=== PATIENT | female | born 1965 | race Caucasian/White ===

== ENCOUNTER 2016-04-07 15:52 | Emergency (ER) | payer MEDICARE ==
[2016-04-07 16:09] VITALS: BMI 28.3
[2016-04-07 16:10] VITALS: TEMP 97.4
[2016-04-07 16:34] LABS: AUTOMATED BASOPHIL 0.6 % (0-2); AUTOMATED LYMPH 35.7 % (17-44); AUTOMATED MONOCYTE 8.8 % (3-10); AUTOMATED NEUTROPHIL 54.9 % (45-76)
[2016-04-07 16:48] LABS: BLOOD UREA NITROGEN 11 MG/DL (7-17); CALCIUM 10.1 MG/DL (8.4-10.2); CALCULATED OSMOLALITY 278 MOs/Kg (270-290); CHLORIDE 111 mEq/L (98-107); GLUCOSE 97 MG/DL (70-99); SODIUM LEVEL 145 mEq/L (137-146); TOTAL PROTEIN 7.8 G/DL (6.3-8.2)
[2016-04-07 16:55] LABS: LEUKOCYTES/URINE NEG (NEGATIVE); NITRITE/URINE NEG (NEGATIVE); RBC/URINE 0-2 (0-5); URINE OCCULT BLOOD NEG (NEG/TRACE); WBC/URINE 0-2 (0-5)
--- NOTE | 2016-04-07 20:58 | EDPRACDOC ---
- General Information Chief Complaint: Abdominal Pain Stated Complaint: ABD PAIN Time Seen by Provider: 04/07/16 20:53 Information Source: Patient Mode Of Arrival: Ambulance Home Medications: Home Medications Gabapentin [Neurontin] 600 mg PO TID 02/27/12 Sertraline HCl [Zoloft] 150 mg PO QAM 11/16/13 Albuterol Sulfate [Proair Hfa] 2 puff INH Q4H PRN 06/05/14 Tiotropium [place] [Spiriva] 1 puff INH DAILY 06/05/14 Cholecalciferol [Vitamin D3 (cholecalciferol)] 1,000 units PO DAILY 06/21/14 Canagliflozin [Invokana] 100 mg PO DAILY 06/11/15 Esomeprazole Mag Trihydrate [Nexium] 40 mg PO DAILY PRN 06/11/15 Insulin Glargine [Lantus Pen] 50 units SQ QHS 06/11/15 Linaclotide [Linzess] 145 mcg PO QHS 06/11/15 Olanzapine [Zyprexa] 20 mg PO DAILY 06/11/15 Ledipasvir/Sofosbuvir [Harvoni 90-400 mg Tablet] 1 tab PO DAILY 09/06/15 Calcitriol [Rocaltrol] 0.5 mcg PO BID 02/24/16 Diltiazem HCl [Diltiazem 24Hr ER] 360 mg PO DAILY 02/24/16 Levothyroxine [Synthroid, Levoxyl] 150 mcg PO DAILY 02/24/16 Lisinopril [Prinivil] 10 mg PO DAILY 02/24/16 Lorazepam [Ativan] 0.5 mg PO TID 02/24/16 MetFORMIN (Immediate Release) [GLUCOPHAGE Immed Release] 1,000 mg PO .BID SEE COMMENTS 02/24/16 Oxycodone HCl [Roxicodone] 5 mg PO QID 02/24/16 Rosuvastatin [Crestor] 10 mg PO HS 02/24/16 Oxycodone Immediate Release [Oxy-Ir] 5 mg PO Q4H PRN #40 tab 02/26/16 Promethazine HCl [Phenergan] 12.5 mg PO Q6 PRN #30 tablet 02/26/16 Allergies/Adverse Reactions: Allergies Allergy/AdvReac Type Severity Reaction Status Date / Time ibuprofen [From Motrin] Allergy Severe Bleeding Verified 04/07/16 16:09 codeine [Codeine] Allergy HIVES Verified 04/07/16 16:09 - History of Present Illness Onset: TODAY Pain Location: Reports: RUQ Pain Context: Reports: Spontaneous Pain Severity: Mild Pain Quality: Reports: Aching Pain Radiation: Reports: No Radiation Last Menstrual Period: 04/01/16 Adult Abdominal History: Reports: Similar Pain (dx) (MULTIPLE). Denies: Urolithiasis, Bowel Obstruction Female Abdominal History: Denies: UTI, Ectopic, PID, Urolithiasis Female Associated Signs & Symptoms: Reports: Nausea. Denies: Vomiting, Anorexia , Fever Oral Intake: Normal Urinary Output: Normal Other History: [facility] ED VISITS FOR ABD PAIN. 5 CT ABDOMEN IN 5 YEARS. - Treatment Prior to ED Arrival Reported Medications/Treatment [facility] Treatment BLS IV No ED Past Medical History - History Reviewed Yes Nurses notes reviewed and agree except as marked - Patient Medical History Neurological History: Reports: Seizures (3 DAYS AGO) Cardiac History: Reports: Hypertension, Hypercholesterolemia. Denies: Atrial Fibrillation Respiratory History: Reports: COPD, Pneumonia GI/ History: Reports: Renal Disease (gfr 59), Gastroesophageal Reflux. Denies : Urinary Tract Infection Psychological History: Reports: Schizophrenia, Substance Use Disorder (pain medication-opiods). Denies: Depression Systemic History: Reports: Anemia, Diabetes, Hypothyroidism, HIV Surgical History: Reports: Appendectomy, Cholecystectomy, Tonsillectomy/ Adnoidectomy, Other (Tubal ligation) - Family Medical History Reports: Hypertension (Mother), Diabetes (Mother), Stroke (brother, grandfather) , Cardiac Disorders (brother) - Social Medical History Smoking Status: Heavy tobacco smoker (5 or more cigarettes/day or daily pipe/ cigar) Social History: Reports: Benzodiazipine Use, Cocaine Use, Substance Use Disorder (pain medication-opiods) Lives In: Home EDM Review of Systems - Review of Systems ROS Negative Except as Marked: Yes All systems reviewed and were negative except as marked - Physical Exam Constitutional: No apparent distress, Alert (Awake), Other (APPEARS CHEMICALLY SEDATED) Oriented to: Time, Person, Place Last recorded Vital Signs: Last Vital Signs Temp 97.4 F L 04/07/16 16:09 Pulse 98 04/07/16 16:09 Resp 20 04/07/16 16:09 BP 117/60 04/07/16 16:09 Pulse Ox 100 04/07/16 16:09 Oxygen Pulse Oxygen Saturation 100 O2 Device Oxygen Flow Rate Fraction of Inspired Oxygen ( FIO2) - HEENT Head: Normal ( normocephalic) Eye Exam: Normal (PERRL, EOMI, Sclera white). negative: Pale Conjunctiva, Scleral Icterus Oropharynx: Normal (Pharynx:Moist without exudate,Gums-no swelling). negative: Membranes Dry, Tonsillar Hypertrophy Nose: No Symptoms Reported (septum midline) Neck: Normal (FROM, trachea at midline) - Respiratory/Cardiovascular Respiratory: Normal - CTA (BBS clear to auscultation without adventitious sounds ) Cardiovascular: Normal (RRR without murmur, gallop or rub) - GI Auscultation: Normal (NABS) Palpation: Normal (Soft,No rebound or guarding, non distended) Tenderness: Mild, RUQ Ortiz's Sign: Negative - Musculoskeletal Back: Normal (Non-Tender) Extremities: Normal (Normal tone, Pulses 2+ No cyanosis or edema, FROM) - Integumentary Skin: Normal, Warm, Dry Lymphatics: Normal (no adenopathy) - Neurologic Memory Impaired: Normal Motor Function: Normal (Normal tone, Pulses 2+ No cyanosis or edema, FROM) Cranial Nerve: Normal (CN II-X11 intact sensation, strength 5/5) Cerebellar: Normal Mood Description: Normal Thought: Coherent Perception: Normal - Results 04/07/16 16:20 04/07/16 16:20 WBC 3.5 xk/uL (3.8-10.8) L 04/07/16 16:20 RBC 4.51 xM/uL (4.20-5.40) 04/07/16 16:20 Hgb 12.7 g/dL (12.0-16.0) 04/07/16 16:20 Hct 37.8 % (36-47) 04/07/16 16:20 MCV 84 fL (81-99) 04/07/16 16:20 MCH 28.3 pg (27-32) 04/07/16 16:20 MCHC 33.7 g/dl (33-36) 04/07/16 16:20 RDW 17.4 % (11.5-14.5) H 04/07/16 16:20 Plt Count 99 xk/uL (130-400) L 04/07/16 16:20 MPV 9.0 fL (7.4-10.4) 04/07/16 16:20 Neut % (Auto) 54.9 % (45-76) 04/07/16 16:20 Lymph % (Auto) 35.7 % (17-44) 04/07/16 16:20 [place] % (Auto) 8.8 % (3-10) 04/07/16 16:20 Eos % (Auto) 0.0 % (0-5) 04/07/16 16:20 Baso % (Auto) 0.6 % (0-2) 04/07/16 16:20 Absolute Neuts (auto) 1.89 xk/uL (1.7-8.2) 04/07/16 16:20 Absolute Lymphs (auto) 1.23 xk/uL (0.65-4.75) 04/07/16 16:20 Sodium 145 mEq/L (137-146) 04/07/16 16:20 Potassium 3.6 mEq/L (3.5-5.1) 04/07/16 16:20 Chloride 111 mEq/L (98-107) H 04/07/16 16:20 Carbon Dioxide 24 mMOL/L (22-33) 04/07/16 16:20 Anion Gap 14 mEq/L (8-16) 04/07/16 16:20 BUN 11 MG/DL (7-17) 04/07/16 16:20 Creatinine 0.70 MG/DL (0.52-1.04) 04/07/16 16:20 Estimated GFR (MDRD) > 60 mL/min (>=60) 04/07/16 16:20 Glucose 97 MG/DL (70-99) 04/07/16 16:20 Calculated Osmolality 278 MOs/Kg (270-290) 04/07/16 16:20 Calcium 10.1 MG/DL (8.4-10.2) 04/07/16 16:20 Total Bilirubin 0.5 MG/DL (0.2-1.3) 04/07/16 16:20 AST 26 IU/L (14-36) 04/07/16 16:20 ALT 47 IU/L (9-52) 04/07/16 16:20 Alkaline Phosphatase 139 IU/L (38-126) H 04/07/16 16:20 Total Protein 7.8 G/DL (6.3-8.2) 04/07/16 16:20 Albumin 4.1 G/DL (3.5-5.0) 04/07/16 16:20 Urine Color Yellow 04/07/16 16:20 Urine Clarity Clear 04/07/16 16:20 Urine pH 6.0 (5.0-8.0) 04/07/16 16:20 Ur Specific [place] 1.005 (1.003-1.035) 04/07/16 16:20 Urine Protein Neg (NEG/TRACE) 04/07/16 16:20 Urine Glucose (UA) 3+ (NEGATIVE) H 04/07/16 16:20 Urine Ketones Neg (NEGATIVE) 04/07/16 16:20 Urine Occult Blood Neg (NEG/TRACE) 04/07/16 16:20 Urine Nitrite Neg (NEGATIVE) 04/07/16 16:20 Urine Bilirubin Neg (NEGATIVE) 04/07/16 16:20 Urine Urobilinogen <2.0 MG/DL (0-1) 04/07/16 16:20 Ur Leukocyte Esterase Neg (NEGATIVE) 04/07/16 16:20 Urine RBC 0-2 (0-5) 04/07/16 16:20 Urine WBC 0-2 (0-5) 04/07/16 16:20 Ur Epithelial Cells 2+ 04/07/16 16:20 Urine Bacteria Few (NEG/FEW) 04/07/16 16:20 Urine Mucus Occ (NEG/OCC) 04/07/16 16:20 Lab Results 04/07/16 04/07/16 04/07/16 16:20 16:20 16:20 WBC 3.5 L RBC 4.51 Hgb 12.7 Hct 37.8 MCV 84 MCH 28.3 MCHC 33.7 RDW 17.4 H Plt Count 99 L MPV 9.0 Neut % (Auto) 54.9 Lymph % (Auto) 35.7 [place] % (Auto) 8.8 Eos % (Auto) 0.0 Baso % (Auto) 0.6 Absolute Neuts (auto) 1.89 Absolute Lymphs (auto) 1.23 Sodium 145 Potassium 3.6 Chloride 111 H Carbon Dioxide 24 Anion Gap 14 BUN 11 Creatinine 0.70 Estimated GFR (MDRD) > 60 Glucose 97 Calculated Osmolality 278 Calcium 10.1 Total Bilirubin 0.5 AST 26 ALT 47 Alkaline Phosphatase 139 H Total Protein 7.8 Albumin 4.1 Urine Color Yellow Urine Clarity Clear Urine pH 6.0 Ur Specific [place] 1.005 Urine Protein Neg Urine Glucose (UA) 3+ H Urine Ketones Neg Urine Occult Blood Neg Urine Nitrite Neg Urine Bilirubin Neg Urine Urobilinogen <2.0 Ur Leukocyte Esterase Neg Urine RBC 0-2 Urine WBC 0-2 Ur Epithelial Cells 2+ Urine Bacteria Few Urine Mucus Occ - Additional Information TOO NUMEROUS TO COUNT ED VISITS FOR ABDOMINAL PAIN LIKE THIS IN THE PAST. LAST CT SCAN WAS APPROXIMATELY 1 MONTH AGO WHICH WAS WITHIN NORMAL LIMITS. HAD A GALLBLADDER TAKEN OUT IN JANUARY WITHOUT COMPLICATIONS. THIS STILL HAS NOT RESOLVED HER RIGHT UPPER QUADRANT ABDOMINAL PAIN. THIS IS NOT A NEW PROBLEM THIS SHOULD NOT BE ADDRESSED WITH NARCOTIC PAIN MEDICATIONS PRESCRIBED BY THE EMERGENCY DEPARTMENT. - Departure Disposition: Home Condition: Stable Final Diagnosis: Abdominal pain Instructions: Acute Abdominal Pain (ED), Non-pharmacological Pain Management Therapies for Adults (GEN), Abdominal Pain (ED) Education/Counseling Given To: Patient Education/Counseling Given Regarding: Diagnosis, Treatment, Prognosis Referrals: Deborah Guo MD [NonStaff] - One Week
[2016-04-07] MEDS ORDERED: ACETAMINOPHEN 325 MG/TAB TABLET PO ONE (21:01)
[2016-04-07 21:32] VITALS: BP 133/77; PULSE 71
== END 2016-04-07 21:29 | disposition home or self-care (01) ==
LOC: ED 15:52
DX: R10.9 Unspecified abdominal pain (principal)
CPT/HCPCS: 36415; 80053; 81001; 85025; 99283; A9270; J3490

== ENCOUNTER 2016-04-07 22:59 | Emergency (ER) | payer MEDICARE ==
[2016-04-07 22:59] VITALS: BMI 28.3
== END 2016-04-07 23:05 | disposition left against medical advice (07) ==
LOC: ED 22:59
DX: Z53.21 Procedure and treatment not carried out due to patient leaving prior to being seen by health care provider (principal)